=== PATIENT | female | born 1990 ===

== ENCOUNTER 2020-01-28 17:27 | Emergency (ER) | payer OTHER ==
--- NOTE | 2020-01-28 17:38 | EDM.PDOC ---
ED HPI GENERAL MEDICAL PROBLEM - General Chief Complaint: BRIDAL SALES CONSULTANT Problem Stated Complaint: BLEEDING 9 WEEKS Time Seen by Provider: 01/28/20 17:28 Source of Information: Reports: Patient History Limitations: Reports: No Limitations - History of Present Illness INITIAL COMMENTS - FREE TEXT/NARRATIVE: HISTORY AND PHYSICAL: History of present illness: Patient is a 29-year-old female who presents to the ED today with concern of spotting at about 9 weeks . Patient states she follows with Ingrid Kaur and called and spoke to Ingrid. Patient states that since her blood type is negative she needs RhoGam and was told to come to the ED in order to get this. Patient states she has not had to use a pad or tampon and only has spotting with wiping x 1. Patient denies any lower abdominal pain or cramping. Patient states she has had an ultrasound in the clinic verifying an intrauterine and baby had a heart rate at that time. Patient denies any other symptoms or concerns. Patient denies fever, chills, chest pain, shortness of breath, or cough. Denies headache, neck stiff ness, change in vision, syncope, or near syncope. Denies nausea, vomiting, abdominal pain, diarrhea, constipation, or dysuria. Has not noted any blood in urine or stool. Patient has been eating and drinking appropriately. Review of systems: As per history of present illness and below otherwise all systems reviewed and negative. Past medical history: As per history of present illness and as reviewed below otherwise noncontributory. Surgical history: As per history of present illness and as reviewed below otherwise noncontributory. Social history: See social history for further information Family history: As per history of present illness and as reviewed below otherwise noncontributory. Physical exam: General: Patient is alert, oriented, and in no acute distress. Patient sitting comfortably on exam table. HEENT: Atraumatic, normocephalic, pupils equal and reactive bilaterally, negative for conjunctival pallor or scleral icterus, mucous membranes moist, TMs normal bilaterally, throat clear, neck supple, nontender, trachea midline. No drooling or trismus noted. No meningeal signs. No hot potato voice noted. Lungs: Clear to auscultation, breath sounds equal bilaterally, chest nontender. Heart: S1S2, regular rate and rhythm without overt murmur Abdomen: Soft, nondistended, nontender. Negative for masses or hepatosplenomegaly. Negative for costovertebral tenderness. Pelvis: Stable nontender. Genitourinary: Deferred. Rectal: Deferred. Skin: Intact, warm, dry. No lesions or rashes noted. Extremities: Atraumatic, negative for cords or calf pain. Neurovascular unremarkable. Neuro: Awake, alert, oriented. Cranial nerves II through XII unremarkable. Cerebellum unremarkable. Motor and sensory unremarkable throughout. Exam nonfocal. Notes: Discussed importance for follow-up with her BRIDAL SALES CONSULTANT provider. Voices understanding and is agreeable to plan of care. Denies any further questions or concerns at this time. Diagnostics: CBC, Rh/Blood type, UA, hcb quant, BMP Therapeutics: Rhogram Prescription: None Impression: Abnormal vaginal bleeding Plan: 1. Please start and/or continue to take your vitamin with folic acid once daily. 2. Pelvic rest until cleared by your OBGYN (no tampons, sex, etc...) 3. Tylenol as needed for pain management. This is safe to use in . 4. Follow up with your BRIDAL SALES CONSULTANT as discussed. Return to the ED as needed and as discussed. Definitive disposition and diagnosis as appropriate pending reevaluation and review of above. - Related Data Allergies Allergy/AdvReac Type Severity Reaction Status Date / Time No Known Allergies Allergy Verified 01/28/20 17:34 Home Meds: Home Meds . [No Known Home Meds] 01/28/20 [History] ED ROS GENERAL - Review of Systems Review Of Systems: Comprehensive ROS is negative, except as noted in HPI. ED EXAM, GENERAL - Physical Exam Exam: See Below (see dictation) Course - Vital Signs Last Recorded V/S: Last Vital Signs Temp 98.4 F 01/28/20 17:39 Pulse 94 01/28/20 17:39 Resp 16 01/28/20 17:39 BP 128/67 01/28/20 17:39 Pulse Ox 99 01/28/20 17:39 - Orders/Labs/Meds Orders: Active Orders 24 hr Category Date Time Status RHOGAM, [RHIG WORKUP, ] [BBK] Stat Lab 01/28/20 18:55 Ordered Labs: Laboratory Tests 01/28/20 01/28/20 01/28/20 Range/Units 17:36 17:40 17:40 WBC 8.87 (4.0-11.0) K/uL RBC 4.13 L (4.30-5.90) M/uL Hgb 12.5 (12.0-16.0) g/dL Hct 38.2 (36.0-46.0) % MCV 92.5 (80.0-98.0) fL MCH 30.3 (27.0-32.0) pg MCHC 32.7 (31.0-37.0) g/dL RDW Std Deviation 47.7 (28.0-62.0) fl RDW Coeff of Solange 14 (11.0-15.0) % Plt Count 282 (150-400) K/uL MPV 9.30 (7.40-12.00) fL Neut % (Auto) 50.5 (48.0-80.0) % Lymph % (Auto) 39.9 (16.0-40.0) % [place] % (Auto) 8.5 (0.0-15.0) % Eos % (Auto) 0.9 (0.0-7.0) % Baso % (Auto) 0.2 (0.0-1.5) % Neut # (Auto) 4.5 (1.4-5.7) K/uL Lymph # (Auto) 3.5 H (0.6-2.4) K/uL [place] # (Auto) 0.8 (0.0-0.8) K/uL Eos # (Auto) 0.1 (0.0-0.7) K/uL Baso # (Auto) 0.0 (0.0-0.1) K/uL Nucleated RBC % 0.0 /100WBC Nucleated RBCs # 0 K/uL Sodium (136-145) mmol/L Potassium (3.5-5.1) mmol/L Chloride (98-107) mmol/L Carbon Dioxide (21.0-32.0) mmol/L BUN (7.0-18.0) mg/dL Creatinine (0.6-1.0) mg/dL Est Cr Clr Drug Dosing mL/min Estimated GFR (MDRD) ml/min Glucose (74-106) mg/dL Calcium (8.5-10.1) mg/dL HCG, Quant 06030.0 mIU/mL Urine Color YELLOW Urine Appearance CLEAR Urine pH 6.0 (5.0-8.0) Ur Specific [place] >= 1.030 (1.001-1.035) Urine Protein NEGATIVE (NEGATIVE) mg/dL Urine Glucose (UA) NEGATIVE (NEGATIVE) mg/dL Urine Ketones NEGATIVE (NEGATIVE) mg/dL Urine Occult Blood TRACE-INTACT H (NEGATIVE) Urine Nitrite NEGATIVE (NEGATIVE) Urine Bilirubin NEGATIVE (NEGATIVE) Urine Urobilinogen 0.2 (<2.0) EU/dL Ur Leukocyte Esterase NEGATIVE (NEGATIVE) Urine RBC 0-4 (0-2/HPF) Urine WBC 0-3 (0-5/HPF) Ur Epithelial Cells RARE (NONE-FEW) Urine Bacteria FEW (NEGATIVE) Blood Type 01/28/20 01/28/20 Range/Units 17:40 17:40 WBC (4.0-11.0) K/uL RBC (4.30-5.90) M/uL Hgb (12.0-16.0) g/dL Hct (36.0-46.0) % MCV (80.0-98.0) fL MCH (27.0-32.0) pg MCHC (31.0-37.0) g/dL RDW Std Deviation (28.0-62.0) fl RDW Coeff of Solange (11.0-15.0) % Plt Count (150-400) K/uL MPV (7.40-12.00) fL Neut % (Auto) (48.0-80.0) % Lymph % (Auto) (16.0-40.0) % [place] % (Auto) (0.0-15.0) % Eos % (Auto) (0.0-7.0) % Baso % (Auto) (0.0-1.5) % Neut # (Auto) (1.4-5.7) K/uL Lymph # (Auto) (0.6-2.4) K/uL [place] # (Auto) (0.0-0.8) K/uL Eos # (Auto) (0.0-0.7) K/uL Baso # (Auto) (0.0-0.1) K/uL Nucleated RBC % /100WBC Nucleated RBCs # K/uL Sodium 140 (136-145) mmol/L Potassium 4.0 (3.5-5.1) mmol/L Chloride 106 (98-107) mmol/L Carbon Dioxide 23.2 (21.0-32.0) mmol/L BUN 14 (7.0-18.0) mg/dL Creatinine 0.8 (0.6-1.0) mg/dL Est Cr Clr Drug Dosing 80.59 mL/min Estimated GFR (MDRD) > 60.0 ml/min Glucose 99 (74-106) mg/dL Calcium 8.6 (8.5-10.1) mg/dL HCG, Quant mIU/mL Urine Color Urine Appearance Urine pH (5.0-8.0) Ur Specific [place] (1.001-1.035) Urine Protein (NEGATIVE) mg/dL Urine Glucose (UA) (NEGATIVE) mg/dL Urine Ketones (NEGATIVE) mg/dL Urine Occult Blood (NEGATIVE) Urine Nitrite (NEGATIVE) Urine Bilirubin (NEGATIVE) Urine Urobilinogen (<2.0) EU/dL Ur Leukocyte Esterase (NEGATIVE) Urine RBC (0-2/HPF) Urine WBC (0-5/HPF) Ur Epithelial Cells (NONE-FEW) Urine Bacteria (NEGATIVE) Blood Type A NEGATIVE Departure - Departure Time of Disposition: 18:57 Disposition: Home, Self-Care 01 Clinical Impression: Abnormal vaginal bleeding Qualifiers: Weeks of gestation: unspecified Qualified Code(s): Z34.90 - Encounter for supervision of normal , unspecified, unspecified trimester - Discharge Information Referrals: PCP,None [Primary Care Provider] - Forms: ED Department Discharge Additional Instructions: The following information is given to patients seen in the emergency department who are being discharged to home. This information is to outline your options for follow-up care. We provide all patients seen in our emergency department with a follow-up referral. The need for follow-up, as well as the timing and circumstances, are variable depending upon the specifics of your emergency department visit. If you don't have a primary care physician on staff, we will provide you with a referral. We always advise you to contact your personal physician following an emergency department visit to inform them of the circumstance of the visit and for follow-up with them and/or the need for any referrals to a consulting specialist. The emergency department will also refer you to a specialist when appropriate. This referral assures that you have the opportunity for follow-up care with a specialist. All of these measure are taken in an effort to provide you with optimal care, which includes your follow-up. Under all circumstances we always encourage you to contact your private physician who remains a resource for coordinating your care. When calling for follow-up care, please make the office aware that this follow-up is from your recent emergency room visit. If for any reason you are refused follow-up, please contact the [facility] Emergency Department at and asked to speak to the emergency department charge nurse. [facility] [address], [place] [address] [facility] [address] [place] [id number] . Please start and/or continue to take your vitamin with folic acid once daily. 2. Pelvic rest until cleared by your OBGYN (no tampons, sex, etc...) 3. Tylenol as needed for pain management. This is safe to use in . 4. Follow up with your BRIDAL SALES CONSULTANT as discussed. Return to the ED as needed and as discussed. Sepsis Event Note - Focused Exam Vital Signs: Vital Signs Temp Pulse Resp BP Pulse Ox 01/28/20 17:39 98.4 F 94 16 128/67 99 Date Exam was Performed: 01/28/20 Time Exam was Performed: 18:57 - My Orders Last 24 Hours: My Active Orders 01/28/20 18:55 RHOGAM, [RHIG WORKUP, ] [BBK] Stat - Assessment/Plan Last 24 Hours: My Active Orders 01/28/20 18:55 RHOGAM, [RHIG WORKUP, ] [BBK] Stat
[2020-01-28 18:43] LABS: BLOOD UREA NITROGEN,BUN 14 mg/dL (7.0-18.0); CARBON DIOXIDE,CO2 23.2 mmol/L (21.0-32.0); CHLORIDE,CL 106 mmol/L (98-107); GLUCOSE RANDOM 99 mg/dL (74-106); SODIUM,NA 140 mmol/L (136-145)
== END 2020-01-28 20:39 | disposition home or self-care (01) ==
LOC: MW.ED 17:27
DX: O20.9 Hemorrhage in early pregnancy, unspecified (principal); Z3A.09 9 weeks gestation of pregnancy
CPT/HCPCS: 36415; 80048; 81001; 84702; 85025; 86850; 86900; 86901; 99284; J2792; 36430; 99283

== ENCOUNTER 2021-03-02 07:28 | Inpatient (IN) | payer OTHER ==
--- NOTE | 2021-03-02 08:10 | PCM.LDHP ---
L&D History of Present Illness - General Date of Service: 03/02/21 Admit Problem/Dx: Admission Diagnosis/Problem Admission Diagnosis/Problem 03/02/21 08:05 at 40 2/7 weeks (ABDULAZIZ: 02/28/21 by LMP and early ultrasound) presenting to L&D with report of SROM at 0511. Reports adequate movement, denies contractions at this time. A-, Rubella non-immune, GBS negative. SVE: 1-2cm/50%/-2, anterior, firm; amnisure positive. 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: Other OB/BYN History: Prior x3 - Infectious Disease History Infectious Disease History: Reports: Chicken Pox, Influenza Social & Family History - Family History Family Medical History: No Pertinent Family History - Caffeine Use Caffeine Use: Reports: Soda, Tea H&P Review of Systems - Review of Systems: Review Of Systems: See Below General: Reports: No Symptoms HEENT: Reports: No Symptoms Pulmonary: Reports: No Symptoms Cardiovascular: Reports: No Symptoms Gastrointestinal: Reports: No Symptoms Genitourinary: Reports: No Symptoms Musculoskeletal: Reports: No Symptoms Skin: Reports: No Symptoms Psychiatric: Reports: No Symptoms Neurological: Reports: No Symptoms Hematologic/Lymphatic: Reports: No Symptoms Immunologic: Reports: No Symptoms L&D Exam - Exam Exam: See Below - OB Specific Movement: Active Heart Tones: Present - Carbone Score Carbone Score Cervix Position: Anterior Carbone Score Consistency: Firm Carbone Score Effacement: 31-50% Carbone Score Dilation: 1-2 cm Carbone Score Infant's Station: -2 Carbone Score Total: 5 - Exam General: Alert, Oriented, Cooperative Lungs: Normal Respiratory Effort Cardiovascular: Regular Rate, Regular Rhythm GI/Abdominal Exam: Soft, Non-Tender Rectal Exam: Deferred Genitourinary: Deferred Back Exam: Normal Inspection, Full Range of Motion Extremities: Normal Inspection, Normal Range of Motion, Non-Tender, Normal Capillary Refill Skin: Warm, Dry, Intact Neurological: Normal Speech, Normal Tone, Sensation Intact Psychiatric: Alert, Normal Affect, Normal Mood - Problem List (1) Supervision of normal IUP (intrauterine ) in multigravida SNOMED Code(s): 124330357, 035078525, 308291357 ICD Code: Z34.80 - ENCOUNTER FOR SUPRVSN OF NORMAL , UNSP TRIMESTER Status: Acute Priority: High Current Visit: Yes Qualifiers: Trimester: third trimester Qualified Code(s): Z34.83 - Encounter for supervision of other normal , third trimester (2) Rh negative status during SNOMED Code(s): 278693603 ICD Code: O26.899 - OTH RELATED CONDITIONS, UNSPECIFIED TRIMESTER; Z67.91 - UNSPECIFIED BLOOD TYPE, RH NEGATIVE Status: Acute Priority: High Current Visit: Yes Qualifiers: Trimester: third trimester Qualified Code(s): O26.893 - Other specified related conditions, third trimester; Z67.91 - Unspecified blood type, Rh negative Problem List Initiated/Reviewed/Updated: Yes Assessment/Plan Comment:: Admit A: at 40 2/7 weeks (ABDULAZIZ: 02/28/21 by LMP and early ultrasound) presenting to L&D with report of SROM at 0511. Reports adequate movement, denies contractions at this time. A-, Rubella non-immune, GBS negative. SVE: 1-2cm/50%/-2, anterior, firm; amnisure positive. P: Admit; PO cytotec; pitocin PRN; epidural PRN; Dr. Perdomo updated.
[2021-03-02] MEDS ORDERED: Misoprostol 50 MCG (1/2 of 100 MCG) Tab PO ONE ×2 (08:13→13:36)
[2021-03-02] MEDS ORDERED: Terbutaline 1 MG/ML SDV SUBCUT PRN (08:14)
[2021-03-02] MEDS ORDERED: Sodium Chloride 0.9% 10 ML SDV IV PRN (08:14)
[2021-03-02] MEDS ORDERED: Tranexamic Acid 1,000 MG in Sodium Chloride 0.9% 100 ML IV PRN (08:14)
[2021-03-02] MEDS ORDERED: Nalbuphine 10 MG/1 ML Vial IVPUSH PRN (08:14)
[2021-03-02] MEDS ORDERED: Water For Irrigation,Sterile 1,000 ML Container IRR PRN (08:14)
[2021-03-02] MEDS ORDERED: Misoprostol 200 MCG Tab PO PRN (08:14)
[2021-03-02] MEDS ORDERED: Butorphanol 1 MG/ML SDV IVPUSH PRN (08:14)
[2021-03-02] MEDS ORDERED: Sodium Chloride 0.9% 10 ML Syringe FLUSH PRN (08:14)
[2021-03-02] MEDS ORDERED: Sodium Chloride 0.9% 2.5 ML Syringe FLUSH PRN (08:14)
[2021-03-02] MEDS ORDERED: Carboprost Tromethamine 250 MCG/1 ML Amp IM PRN (08:14)
[2021-03-02] MEDS ORDERED: Methylergonovine 0.2 MG/1 ML Amp IM PRN (08:14)
[2021-03-02] MEDS ORDERED: Lidocaine 1% 50 ML MDV INJECT PRN (08:14)
[2021-03-02] MEDS ORDERED: Oxytocin/0.9 % Sodium Chloride 30 UNIT/500 ML BAG IV SCH ×2 (08:15)
[2021-03-02] MEDS: Lactated Ringers 1,000 ML IV SCH ×3 (15:33→23:15)
[2021-03-02] MEDS ORDERED: Ropivacaine 0.2% PF 2 MG/ML 20 ML SDV ONE (15:45)
[2021-03-02] MEDS ORDERED: Ropivacaine HCl/PF 100 ML ONE (15:45)
[2021-03-02] MEDS ORDERED: fentaNYL 100 MCG/2 ML SDV ONE (15:45)
--- NOTE | 2021-03-02 15:52 | PCM.PREANE ---
Preanesthetic Assessment - Procedure Proposed Procedure: VINNY - Anesthesia/Transfusion/Family Hx Anesthesia History: Prior Anesthesia Without Reaction Family History of Anesthesia Reaction: No Transfusion History: No Prior Transfusion(s) Intubation History: Unknown - Review of Systems General: No Symptoms Pulmonary: No Symptoms Cardiovascular: No Symptoms Gastrointestinal: No Symptoms Neurological: No Symptoms Other: Reports: Anxiety - Physical Assessment NPO Status Date: 03/02/21 NPO Status Time: 15:00 (Clear Liquids) Height: 1.57 m Weight: 122.016 kg ASA Class: 2 Mental Status: Alert & Oriented x3 Airway Class: Mallampati = 2 Dentition: Reports: Normal Dentition Thyro-Mental Finger Breadths: 3 Mouth Opening Finger Breadths: 3 ROM/Head Extension: Full Lungs: Clear to Auscultation Cardiovascular: Regular Rate - Lab Values: Laboratory Last Values WBC 9.02 K/uL (4.0-11.0) 03/02/21 08:45 RBC 4.04 M/uL (4.30-5.90) L 03/02/21 08:45 Hgb 12.4 g/dL (12.0-16.0) 03/02/21 08:45 Hct 36.9 % (36.0-46.0) 03/02/21 08:45 MCV 91.3 fL (80.0-98.0) 03/02/21 08:45 MCH 30.7 pg (27.0-32.0) 03/02/21 08:45 MCHC 33.6 g/dL (31.0-37.0) 03/02/21 08:45 RDW Std Deviation 45.3 fl (28.0-62.0) 03/02/21 08:45 RDW Coeff of Solange 14 % (11.0-15.0) 03/02/21 08:45 Plt Count 200 K/uL (150-400) 03/02/21 08:45 MPV 11.60 fL (7.40-12.00) 03/02/21 08:45 Nucleated RBC % 0.0 /100WBC 03/02/21 08:45 Nucleated RBCs # 0 K/uL 03/02/21 08:45 SARS-CoV-2 RNA (RAYMOND) NEGATIVE (NEGATIVE) 03/02/21 08:45 Blood Type A NEGATIVE 03/02/21 09:50 Antibody Screen POSITIVE 03/02/21 09:50 Antibody Identification Anti-D 03/02/21 09:50 Crossmatch See Detail 03/02/21 09:50 - Allergies Allergies/Adverse Reactions: Allergies Allergy/AdvReac Type Severity Reaction Status Date / Time No Known Allergies Allergy Verified 02/28/21 14:24 - Blood Blood Available: No Product(s) Available: None - Anesthesia Plan Pre-Op Medication Ordered: None - Acknowledgements Anesthesia Type Planned: Epidural Pt an Appropriate Candidate for the Planned Anesthesia: Yes Alternatives and Risks of Anesthesia Discussed w Pt/Guardian: Yes Pt/Guardian Understands and Agrees with Anesthesia Plan: Yes Additional Comments: G4 active labor, 04/01. Discussed, ? answered. Permit signed. Wishes to proceed. 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: Other OB/BYN History: Prior x3 Neurological History: Reports: Headaches, Chronic Psychiatric History: Reports: ADD, Depression Endocrine/Metabolic History: Reports: Obesity/BMI 30+ - Infectious Disease History Infectious Disease History: Reports: Chicken Pox, Influenza - Past Surgical History HEENT Surgical History: Reports: None Neurological Surgical History: Reports: None - SUBSTANCE USE Tobacco Use Status *Q: Never Tobacco User Second Hand Smoke Exposure: No Recreational Drug Use History: No - HOME MEDS Home Medications: Home Meds Acetaminophen [Tylenol Extra Strength] 1 - 2 tab PO ASDIRECTED PRN 02/28/21 [History] Pnv No.95/Ferrous Fum/Folic AC [ Tablet] 1 tab PO DAILY 02/28/21 [History] - CURRENT (IN HOUSE) MEDS Current Meds: Current Medications Butorphanol Tartrate (Butorphanol 1 Mg/Ml Sdv) 1 mg IVPUSH Q1H PRN PRN Reason: Pain Carboprost Tromethamine (Carboprost Tromethamine 250 Mcg/1 Ml Amp) 250 mcg IM ASDIRECTED PRN PRN Reason: Post Hemorrhage Lactated Ringer's (Ringers, Lactated) 1,000 mls @ 150 mls/hr IV ASDIRECTED KUMAR Last Admin: 03/02/21 15:33 Dose: 150 mls/hr Documented by: Oxytocin/Sodium Chloride (Oxytocin 30 Unit/500 Ml-Ns) 30 unit in 500 mls @ 500 mls/hr IV TITRATE KUMAR Tranexamic Acid 1,000 mg/ (Sodium Chloride) 110 mls @ 660 mls/hr IV ONETIME PRN PRN Reason: Bleeding Oxytocin/Sodium Chloride (Oxytocin 30 Unit/500 Ml-Ns) 30 unit in 500 mls @ 2 mls/hr IV TITRATE KUMAR; Protocol Lidocaine HCl (Lidocaine 1% 50 Ml Mdv) 50 ml INJECT ONETIME PRN PRN Reason: Laceration repair Methylergonovine Maleate (Methylergonovine 0.2 Mg/1 Ml Amp) 0.2 mg IM ASDIRECTED PRN PRN Reason: Post Hemorrhage Misoprostol (Misoprostol 200 Mcg Tab) 200 mcg PO ONETIME PRN PRN Reason: Post Hemorrhage Nalbuphine HCl (Nalbuphine 10 Mg/1 Ml Vial) 10 mg IVPUSH Q1H PRN PRN Reason: Pain (severe 7-10) Sodium Chloride (Sodium Chloride 0.9% 10 Ml Syringe) 10 ml FLUSH ASDIRECTED PRN PRN Reason: Keep Vein Open Sodium Chloride (Sodium Chloride 0.9% 2.5 Ml Syringe) 2.5 ml FLUSH ASDIRECTED PRN PRN Reason: Keep Vein Open Sodium Chloride (Sodium Chloride 0.9% 10 Ml Sdv) 10 ml IV ASDIRECTED PRN PRN Reason: IV Use Sterile Water (Water For Irrigation,Sterile 1,000 Ml Container) 1,000 ml IRR ASDIRECTED PRN PRN Reason: delivery Terbutaline Sulfate (Terbutaline 1 Mg/Ml Sdv) 0.25 mg SUBCUT ASDIRECTED PRN PRN Reason: Tacysystole Discontinued Medications Fentanyl (Fentanyl 100 Mcg/2 Ml Sdv) Confirm Administered Dose 100 mcg .ROUTE .STK-MED ONE Stop: 03/02/21 15:46 Ropivacaine (Naropin 0.2%) Confirm Administered Dose 100 mls @ as directed .ROUTE .STK-MED ONE Stop: 03/02/21 15:46 Misoprostol (Misoprostol 50 Mcg (1/2 Of 100 Mcg) Tab) 50 mcg PO ONETIME ONE Stop: 03/02/21 08:14 Last Admin: 03/02/21 09:18 Dose: 50 mcg Documented by: Misoprostol (Misoprostol 50 Mcg (1/2 Of 100 Mcg) Tab) 50 mcg PO ONETIME ONE Stop: 03/02/21 13:37 Last Admin: 03/02/21 15:00 Dose: 50 mcg Documented by: Ropivacaine (Ropivacaine 0.2% Pf 2 Mg/Ml 20 Ml Sdv) Confirm Administered Dose 20 ml .ROUTE .STK-MED ONE Stop: 03/02/21 15:46
[2021-03-03] MEDS: Lactated Ringers 1,000 ML IV SCH (00:35)
[2021-03-03] MEDS ORDERED: Ropivacaine HCl/PF 100 ML ONE (02:50)
--- NOTE | 2021-03-03 03:00 | PCM.SN.2 ---
- Free Text/Narrative Note: Doing well. 7 cm. VINNY bag change, bolus given. Comfortable.
[2021-03-03] MEDS ORDERED: fentaNYL 100 MCG/2 ML SDV ONE ×2 (04:36→05:54)
[2021-03-03] MEDS ORDERED: Bupivacaine 0.5% 30 ML SDV ONE ×2 (04:36→06:07)
--- NOTE | 2021-03-03 04:51 | PCM.SN.2 ---
- Free Text/Narrative Note: Increased back labor discomfort. Pain 5/10. 0.5% Marcaine 5 ml + 100 mcg fentanyl given. Infusion increased to 10 ml/hr. Pain 11/01.
--- NOTE | 2021-03-03 06:10 | PCM.SN.2 ---
- Free Text/Narrative Note: Patient complete. Pain increased with progression of labor. Analgesia requested for possible vacuum assist. Redosed with 0.5% Marcaine 5ml + 100mcg Fentanyl. Pain significantly better, pushing.
[2021-03-03] MEDS ORDERED: Docusate Sodium 100 MG Cap PO PRN (06:29)
[2021-03-03] MEDS ORDERED: Ibuprofen 800 MG Tab PO PRN (06:29)
[2021-03-03] MEDS ORDERED: Lanolin 100% Cream 7 GM Tube TOP PRN (06:29)
[2021-03-03] MEDS ORDERED: Ibuprofen 400 MG Tab PO PRN (06:29)
[2021-03-03] MEDS ORDERED: Witch Hazel Medicated Pads 40/Jar TOP PRN (06:29)
[2021-03-03] MEDS ORDERED: Benzocaine/Menthol 20%-0.5% Spray 78 GM Cannister TOP PRN (06:29)
[2021-03-03] MEDS ORDERED: Acetaminophen 500 MG Tab PO PRN ×2 (06:29)
[2021-03-03] MEDS ORDERED: Bisacodyl 10 MG Supp RECTAL PRN (06:29)
[2021-03-03] MEDS ORDERED: oxyCODONE 5 MG Tab PO PRN (06:29)
--- NOTE | 2021-03-03 08:15 | PCM48HPAN ---
Post Anesthesia Note - EVALUATION WITHIN 48HRS OF ANESTHETIC Vital Signs in Normal Range: Yes Patient Participated in Evaluation: Yes Respiratory Function Stable: Yes Airway Patent: Yes Cardiovascular Function Stable: Yes Hydration Status Stable: Yes Pain Control Satisfactory: Yes Nausea and Vomiting Control Satisfactory: Yes Mental Status Recovered: Yes - COMMENTS/OBSERVATIONS Free Text/Narrative:: Doing well. No problems noted post.
--- NOTE | 2021-03-03 14:42 | OR ---
SURGEON: Shaquille Perdomo MD DATE OF PROCEDURE: 03/03/2021 Ms. Shy Bellamy is 30 years old. She is para 3-0-0-3. She is term. She is followed in our clinic jointly by myself and our nurse midwifery service. She was 41 weeks at the time of her admission yesterday with spontaneous rupture of membrane. The patient's GBS status is negative. Her diabetes screen is negative. She has unremarkable care. At the time of the admission, her dilatation is 1 to 2 cm, 60% vertex, and -3. Confirmed rupture with meconium. We did heart rate. Initial heart rate screening was normal, so we discussed method of induction of labor. We elected to use Cytotec. The patient had 2 doses of Cytotec with 4 hours time difference between both of them. She responded to that. She went to 3 to 4, 80 vertex and -2 station. The patient continued to have contraction spontaneously; however, they are very spaced out after she had her epidural anesthesia. So, she required Pitocin augmentation. During the augmentation, she started having variable deceleration, so we discontinued the Pitocin and the patient continued to contract on her own slowly. Eventually, she became complete-complete and she was able to accomplish normal spontaneous vaginal delivery. nuchal cord is noted at the time of delivery, which has explained the variable deceleration the patient had during the labor. The fetus cried immediately. scores reported to be 8 and 9. Weight is not available. The placenta delivered spontaneous, complete, and intact. Estimated blood loss is 300 to 350 mL. heart rate was category 2. There was no need for episiotomy. There was no labial, perineal, or vaginal laceration. There was no complication during the delivery and labor process of this patient. FELIPA / BRINDA /[id number]
--- NOTE | 2021-03-04 12:13 | PCM.DCSUM1 ---
Discharge Summary - Hospital Course Free Text/Narrative:: at 40 2/7 weeks (ABDULAZIZ: 02/28/21 by LMP and early ultrasound) presented to L&D with report of SROM at 0511. Reported adequate movement, denies contractions at this time. A-, Rubella non-immune, GBS negative. SVE: 1-2cm/50%/-2, anterior, firm; amnisure positive. Was admitted and started on PO cytotec; pitocin PRN; Received the epidural PRN; Achieved a uncomplicated . Baby apgars 8/9 EBL 350 - 400cc course has been unremarkable. Diagnosis: Stroke: No - Discharge Data Discharge Date: 03/04/21 Discharge Disposition: Home, Self-Care 01 Condition: Good - Referral to Home Health Primary Care Physician: PCP None - Patient Instructions Diet: Regular Diet as Tolerated - Discharge Plan *PRESCRIPTION DRUG MONITORING PROGRAM REVIEWED*: Not Applicable *COPY OF PRESCRIPTION DRUG MONITORING REPORT IN PATIENT SPRING: Not Applicable Home Medications: Home Meds Acetaminophen [Tylenol Extra Strength] 1 - 2 tab PO ASDIRECTED PRN 02/28/21 [History] Pnv No.95/Ferrous Fum/Folic AC [ Tablet] 1 tab PO DAILY 02/28/21 [History] Patient Handouts: Care After Vaginal Delivery Referrals: Shaquille Perdomo MD [Physician] - 04/14/21 10:45 am - Discharge Summary/Plan Comment DC Time >30 min.: Yes - General Info Date of Service: 03/04/21 Functional Status: Reports: Pain Controlled - Review of Systems General: Reports: No Symptoms HEENT: Reports: No Symptoms Pulmonary: Reports: No Symptoms Cardiovascular: Reports: No Symptoms Gastrointestinal: Reports: No Symptoms Genitourinary: Reports: No Symptoms Musculoskeletal: Reports: No Symptoms Skin: Reports: No Symptoms Neurological: Reports: No Symptoms Psychiatric: Reports: No Symptoms - Patient Data Vitals - Most Recent: Last Vital Signs Temp 96.6 F L 03/04/21 08:08 Pulse 90 03/04/21 08:08 Resp 18 03/04/21 08:08 BP 117/82 03/04/21 08:08 Pulse Ox 96 03/04/21 08:08 Weight - Most Recent: 122.016 kg I&O - Last 24 hours: Intake & Output 0503/04/21 03/04/21 22:59 06:59 14:59 Intake Total 2 Balance 2 Lab Results - Last 24 hrs: Laboratory Results - last 24 hr 03/02/21 03/03/21 03/04/21 Range/Units 08:45 08:00 05:15 Hgb 12.2 (12.0-16.0) g/dL Hct 36.4 (36.0-46.0) % RPR Non-Reac (Non-Reac) Screen NEGATIVE (NEGATIVE) RhIG Candidate? YES Rhogam Indicated YES, BABY RH POS H Med Orders - Current: Current Medications Acetaminophen (Acetaminophen 500 Mg Tab) 500 mg PO Q4H PRN PRN Reason: Pain Acetaminophen (Acetaminophen 500 Mg Tab) 1,000 mg PO Q4H PRN PRN Reason: Pain Benzocaine/Menthol (Benzocaine/Menthol 20%-0.5% [place] 78 Gm Cannister) 78 gm TOP ASDIRECTED PRN PRN Reason: Perineal Comfort Measure Bisacodyl (Bisacodyl 10 Mg Supp) 10 mg RECTAL ONETIME PRN PRN Reason: Constipation Butorphanol Tartrate (Butorphanol 1 Mg/Ml Sdv) 1 mg IVPUSH Q1H PRN PRN Reason: Pain Carboprost Tromethamine (Carboprost Tromethamine 250 Mcg/1 Ml Amp) 250 mcg IM ASDIRECTED PRN PRN Reason: Post Hemorrhage Docusate Sodium (Docusate Sodium 100 Mg Cap) 100 mg PO BID PRN PRN Reason: Constipation Emollient Ointment (Lanolin 100% Cream 7 Gm Tube) 0 gm TOP ASDIRECTED PRN PRN Reason: Sore Nipples Lactated Ringer's (Ringers, Lactated) 1,000 mls @ 150 mls/hr IV ASDIRECTED KUMAR Last Admin: 03/03/21 00:35 Dose: 150 mls/hr Documented by: Oxytocin/Sodium Chloride (Oxytocin 30 Unit/500 Ml-Ns) 30 unit in 500 mls @ 500 mls/hr IV TITRATE [facility] Tranexamic Acid 1,000 mg/ (Sodium Chloride) 110 mls @ 660 mls/hr IV ONETIME PRN PRN Reason: Bleeding Oxytocin/Sodium Chloride (Oxytocin 30 Unit/500 Ml-Ns) 30 unit in 500 mls @ 2 mls/hr IV TITRATE [facility]; Protocol Last Titration: 03/03/21 06:25 Dose: 999 munits/min, 999 mls/hr Documented by: Ibuprofen (Ibuprofen 400 Mg Tab) 400 mg PO Q4H PRN PRN Reason: Pain Ibuprofen (Ibuprofen 800 Mg Tab) 800 mg PO Q6H PRN PRN Reason: Pain Lidocaine HCl (Lidocaine 1% 50 Ml Mdv) 50 ml INJECT ONETIME PRN PRN Reason: Laceration repair Methylergonovine Maleate (Methylergonovine 0.2 Mg/1 Ml Amp) 0.2 mg IM ASDIRECTED PRN PRN Reason: Post Hemorrhage Misoprostol (Misoprostol 200 Mcg Tab) 200 mcg PO ONETIME PRN PRN Reason: Post Hemorrhage Nalbuphine HCl (Nalbuphine 10 Mg/1 Ml Vial) 10 mg IVPUSH Q1H PRN PRN Reason: Pain (severe 7-10) Oxycodone HCl (Oxycodone 5 Mg Tab) 5 mg PO Q2H PRN PRN Reason: Pain Sodium Chloride (Sodium Chloride 0.9% 10 Ml Syringe) 10 ml FLUSH ASDIRECTED PRN PRN Reason: Keep Vein Open Sodium Chloride (Sodium Chloride 0.9% 2.5 Ml Syringe) 2.5 ml FLUSH ASDIRECTED PRN PRN Reason: Keep Vein Open Sodium Chloride (Sodium Chloride 0.9% 10 Ml Sdv) 10 ml IV ASDIRECTED PRN PRN Reason: IV Use Sterile Water (Water For Irrigation,Sterile 1,000 Ml Container) 1,000 ml IRR ASDIRECTED PRN PRN Reason: delivery Terbutaline Sulfate (Terbutaline 1 Mg/Ml Sdv) 0.25 mg SUBCUT ASDIRECTED PRN PRN Reason: Tacysystole Witch Mami (Witch Mami Medicated Pads 40/Jar) 1 pad TOP ASDIRECTED PRN PRN Reason: comfort care Discontinued Medications Bupivacaine HCl (Bupivacaine 0.5% 30 Ml Sdv) Confirm Administered Dose 30 ml .ROUTE .STK-MED ONE Stop: 03/03/21 04:37 Last Admin: 03/03/21 07:43 Dose: Not Given Documented by: Bupivacaine HCl (Bupivacaine 0.5% 30 Ml Sdv) Confirm Administered Dose 30 ml .ROUTE .STK-MED ONE Stop: 03/03/21 06:08 Last Admin: 03/03/21 07:43 Dose: Not Given Documented by: Fentanyl (Fentanyl 100 Mcg/2 Ml Sdv) Confirm Administered Dose 100 mcg .ROUTE .STK-MED ONE Stop: 03/02/21 15:46 Last Admin: 03/03/21 03:27 Dose: Not Given Documented by: Fentanyl (Fentanyl 100 Mcg/2 Ml Sdv) Confirm Administered Dose 100 mcg .ROUTE .STK-MED ONE Stop: 03/03/21 04:37 Last Admin: 03/03/21 07:43 Dose: Not Given Documented by: Fentanyl (Fentanyl 100 Mcg/2 Ml Sdv) Confirm Administered Dose 100 mcg .ROUTE .STK-MED ONE Stop: 03/03/21 05:55 Last Admin: 03/03/21 07:43 Dose: Not Given Documented by: Ropivacaine (Naropin 0.2%) Confirm Administered Dose 100 mls @ as directed .ROUTE .STK-MED ONE Stop: 03/02/21 15:46 Last Admin: 03/03/21 03:27 Dose: Not Given Documented by: Ropivacaine (Naropin 0.2%) Confirm Administered Dose 100 mls @ as directed .ROUTE .STK-MED ONE Stop: 03/03/21 02:51 Last Admin: 03/03/21 03:27 Dose: Not Given Documented by: Misoprostol (Misoprostol 50 Mcg (1/2 Of 100 Mcg) Tab) 50 mcg PO ONETIME ONE Stop: 03/02/21 08:14 Last Admin: 03/02/21 09:18 Dose: 50 mcg Documented by: Misoprostol (Misoprostol 50 Mcg (1/2 Of 100 Mcg) Tab) 50 mcg PO ONETIME ONE Stop: 03/02/21 13:37 Last Admin: 03/02/21 15:00 Dose: 50 mcg Documented by: Ropivacaine (Ropivacaine 0.2% Pf 2 Mg/Ml 20 Ml Sdv) Confirm Administered Dose 20 ml .ROUTE .STK-MED ONE Stop: 03/02/21 15:46 Last Admin: 03/03/21 03:27 Dose: Not Given Documented by: - Exam General: Reports: Alert, Oriented Lungs: Reports: Normal Respiratory Effort GI/Abdominal Exam: Soft, Non-Tender Extremities: Normal Inspection Psy/Mental Status: Reports: Alert, Normal Affect, Normal Mood
== END 2021-03-04 14:45 | disposition home or self-care (01) | DRG 807 ==
LOC: MW.OBCHECK 07:28 → MW.OB 07:31 → MW.OBCHECK 08:25 → MW.OB 08:37 → OBSVTOIN 03-03 06:29 → MW.OB 03-03 10:12
PROVIDERS: ADMIT Obstetrics & Gynecology; ATTEND Obstetrics & Gynecology
PROC: 3E0R3BZ Introduction of Anesthetic Agent into Spinal Canal, Percutaneous Approach (ICD-10-PCS; principal; 2021-03-03)
PROC: 00HU33Z Insertion of Infusion Device into Spinal Canal, Percutaneous Approach (ICD-10-PCS; 2021-03-03)
PROC: 10E0XZZ Delivery of Products of Conception, External Approach (ICD-10-PCS; 2021-03-03)
PROC: 3E0234Z Introduction of Serum, Toxoid and Vaccine into Muscle, Percutaneous Approach (ICD-10-PCS; 2021-03-04)
DX: O48.0 Post-term pregnancy (principal); Z37.0 Single live birth; O26.893 Other specified pregnancy related conditions, third trimester; Z20.822 Contact with and (suspected) exposure to COVID-19; O77.0 Labor and delivery complicated by meconium in amniotic fluid; O76 Abnormality in fetal heart rate and rhythm complicating labor and delivery; Z3A.41 41 weeks gestation of pregnancy; Z67.11 Type A blood, Rh negative
CPT/HCPCS: 36415; 36430; 51702; 59025; 59409; 85014; 85018; 85027; 85460; 86592; 86850; 86870; 86900; 86901; 86902; 86920; 86921; 86922; A9270-GY; J2590; J2792; J2795; J3010; J3490; J7120; U0002

== ENCOUNTER 2024-08-11 20:14 | Emergency (ER) | payer BC ==
[2024-08-11 22:45] LABS: CORONAVIRUS COVID-19 NAA NEGATIVE (NEGATIVE); INFLUENZA A NAA NEGATIVE (NEGATIVE); INFLUENZA B NAA NEGATIVE (NEGATIVE)
[2024-08-11] MEDS: Ketorolac 30 MG/ML SDV IVPUSH ONE (23:03)
[2024-08-11] MEDS: diphenhydrAMINE 50 MG/ML SDV IVPUSH ONE (23:03)
[2024-08-11] MEDS: Sodium Chloride 0.9% 1,000 ML IV ONE (23:03)
[2024-08-11] MEDS: Metoclopramide 10 MG/2 ML SDV IVPUSH ONE (23:03)
[2024-08-11] MEDS: Sodium Chloride 0.9% 2.5 ML Syringe FLUSH PRN (23:13)
[2024-08-11] MEDS: Sodium Chloride 0.9% 10 ML Syringe FLUSH PRN (23:13)
== END 2024-08-12 01:10 | disposition home or self-care (01) ==
LOC: MW.ED 20:14
DX: G43.909 Migraine, unspecified, not intractable, without status migrainosus (principal); E66.9 Obesity, unspecified; Z75.8 Other problems related to medical facilities and other health care
CPT/HCPCS: 0240U; 81025; 96374; 96375; 99284; J1200; J1885; J2765; J3490; J7030